=== PATIENT | female | born 1950 | race Caucasian/White ===

== ENCOUNTER 2016-05-25 14:23 | Emergency (ER) | payer OTHER ==
[2016-05-25 15:24] LABS: BASO % 0.5 % (0.1-1.2); EOS % 0.5 % (0.7-5.8); GRAN # 2.6 10_X3_uL (1.6-6.1); GRAN % 65.5 % (34.0-71.1); HEMATOCRIT 36.1 % (34-45); LYMPH % 25.1 % (19.3-51.7); MEAN CORPUSCULAR HEMOGLOBIN 30.2 pg (27.0-33.0); MEAN CORPUSCULAR HGB CONC 33.2 g/dL (32.0-36.0); MEAN CORPUSCULAR VOLUME 90.7 fL (79-95); MEAN PLATELET VOLUME 11.5 fl (7.5-11.5); MONO # 0.3 10_X3_uL (0.2-0.9); MONO % 8.4 % (4.7-12.5); PLATELET COUNT 71 x10_3/uL (182-369); RED BLOOD COUNT 3.98 x10_6/uL (3.9-5.2); WHITE BLOOD COUNT 3.9 x10_3/uL (4.0-10.0)
[2016-05-25 15:44] LABS: BLOOD UREA NITROGEN 17 mg/dL (7-18); CARBON DIOXIDE 24 mmol/L (21-32); CREATINE KINASE 41 U/L (21-215); CREATININE 0.6 mg/dL (0.6-1.3); GLUCOSE,RANDOM 116 mg/dL (70-99); POTASSIUM 3.8 mmol/L (3.5-5.1); SODIUM 140 mmol/L (136-145)
== END 2016-05-25 17:49 | disposition home or self-care (01) ==
LOC: ER 14:23
PROVIDERS: Emergency Medicine
DX: R07.89 Other chest pain (principal); R05 Cough; E11.9 Type 2 diabetes mellitus without complications; F32.9 Major depressive disorder, single episode, unspecified; E78.5 Hyperlipidemia, unspecified; Z88.0 Allergy status to penicillin
CPT/HCPCS: 36415; 71020; 71260; 80048; 82550; 82553; 85025; 85379; 93005; 99070; 99284-25